=== PATIENT | female | born 1960 | race Caucasian/White ===

== ENCOUNTER 2020-12-18 13:51 | Day surgery (SDC) | payer OTHER ==
[2020-12-18] MEDS ORDERED: Sodium Chloride 0.9(Preservative Free) 10 ML IJ ONE (13:52)
[2020-12-18] MEDS ORDERED: Depo-Medrol 40 MG/ML IM ONE (13:52)
[2020-12-18] MEDS ORDERED: Xylocaine 1% Vial 30 ML PF IJ ONE (13:52)
[2020-12-18] MEDS ORDERED: DIPRIVAN 200 MG/20 ML IV ONE (15:02)
[2020-12-18] MEDS ORDERED: Lactated Ringers 1,000 ML IV ONE (15:35)
--- NOTE | 2020-12-18 17:03 | XRAY ---
59 seconds fluoroscopy time in surgery for caudal DARIANA.
--- NOTE | 2020-12-20 09:17 | XRAY ---
Indication: Caudal DARIANA. Intraoperative fluoroscopy was provided for 59 seconds. 2 digital spot images submitted for interpretation demonstrate the posterior needle tip projected over the posterior mid aspect of the sacrum near the midline. Some contrast has been injected for needle tip placement. Correlate with intraoperative findings/report.
== END 2020-12-18 15:35 | disposition home or self-care (01) ==
LOC: SDC-PAIN 13:51
PROVIDERS: ATTEND Psychiatry & Neurology Pain Medicine
DX: M54.16 Radiculopathy, lumbar region (principal); Z79.899 Other long term (current) drug therapy
CPT/HCPCS: 62323; 72020; 77003; J1030; J2001; J2704; Q9966

== ENCOUNTER 2021-01-22 12:00 | Day surgery (SDC) | payer OTHER ==
[2021-01-22] MEDS ORDERED: Depo-Medrol 40 MG/ML IM ONE (12:01)
[2021-01-22] MEDS ORDERED: LIDOCAINE HCL 2% 100 MG/5 ML IJ ONE (12:01)
[2021-01-22] MEDS ORDERED: DIPRIVAN 200 MG/20 ML IV ONE (13:37)
[2021-01-22] MEDS ORDERED: Lactated Ringers 1,000 ML IV ONE (16:19)
--- NOTE | 2021-01-23 11:29 | XRAY ---
16 seconds fluoroscopy time in surgery for bilateral L4-S1 MBB.
--- NOTE | 2021-01-25 22:54 | XRAY ---
Indication: Bilateral L4-S1 MBB. Intraoperative fluoroscopy was provided for 16 seconds. A single digital spot image submitted for interpretation demonstrate posterior needle tips projected over the expected left and right L4-S1 nerve roots. Correlate with intraoperative findings/report.
== END 2021-01-22 14:05 | disposition home or self-care (01) ==
LOC: SDC-PAIN 12:00
PROVIDERS: ATTEND Psychiatry & Neurology Pain Medicine
DX: M47.816 Spondylosis without myelopathy or radiculopathy, lumbar region (principal); Z79.899 Other long term (current) drug therapy
CPT/HCPCS: 64493; 64494; 72020; 77002; J1030; J2704

== ENCOUNTER 2021-02-19 12:36 | Day surgery (SDC) | payer OTHER ==
[2021-02-19] MEDS ORDERED: Depo-Medrol 40 MG/ML IM ONE (12:37)
[2021-02-19] MEDS ORDERED: BUPIVACAINE 0.5% VIAL IJ ONE (12:37)
[2021-02-19] MEDS ORDERED: DIPRIVAN 200 MG/20 ML IV ONE (14:24)
--- NOTE | 2021-02-19 15:22 | XRAY ---
Indication: Bilateral L4-S1 MBB. Intraoperative fluoroscopy was provided for 16 seconds. Single digital spot image submitted for interpretation demonstrates posterior needle tips projecting over the expected left and right L4-S1 nerve roots. Correlate with intraoperative findings/report.
--- NOTE | 2021-02-19 16:27 | XRAY ---
16 seconds of fluoroscopy was used in surgery for a bilateral L4-S1 MBB.
[2021-02-19] MEDS ORDERED: Lactated Ringers 1,000 ML IV ONE ×2 (16:30→16:31)
== END 2021-02-19 14:50 | disposition home or self-care (01) ==
LOC: SDC-PAIN 12:36
PROVIDERS: ATTEND Psychiatry & Neurology Pain Medicine
DX: M47.816 Spondylosis without myelopathy or radiculopathy, lumbar region (principal); Z79.899 Other long term (current) drug therapy
CPT/HCPCS: 64493; 64494; 72020; 77002; J1030; J2704

== ENCOUNTER 2021-03-14 10:13 | Day surgery (SDC) | payer OTHER ==
[2021-03-14] MEDS ORDERED: Depo-Medrol 40 MG/ML IM ONE (10:14)
[2021-03-14] MEDS ORDERED: Xylocaine 1% Vial 30 ML PF IJ ONE (10:14)
[2021-03-14] MEDS ORDERED: BUPIVACAINE 0.5% VIAL IJ ONE (10:14)
[2021-03-14] MEDS ORDERED: DIPRIVAN 200 MG/20 ML IV ONE (11:42)
[2021-03-14] MEDS ORDERED: Lactated Ringers 1,000 ML IV ONE (12:11)
--- NOTE | 2021-03-14 12:23 | XRAY ---
Indication: Right L4-S1 S1 RFA. Intraoperative fluoroscopy provided for 45 seconds. 4 digital spot image submitted for interpretation demonstrates posterior needle tips projecting over the expected right L4-S1 nerve roots. Correlate with intraoperative findings/report.
--- NOTE | 2021-03-14 12:34 | XRAY ---
45 seconds fluoroscopy time in surgery for right L4-S1 RFA.
== END 2021-03-14 11:56 | disposition home or self-care (01) ==
LOC: SDC-PAIN 10:13
PROVIDERS: ATTEND Psychiatry & Neurology Pain Medicine
DX: M47.816 Spondylosis without myelopathy or radiculopathy, lumbar region (principal); M79.7 Fibromyalgia; K57.92 Diverticulitis of intestine, part unspecified, without perforation or abscess without bleeding; J44.9 Chronic obstructive pulmonary disease, unspecified; R00.2 Palpitations; Z79.899 Other long term (current) drug therapy
CPT/HCPCS: 64635; 64636; 72100; 77002; J1030; J2001; J2704

== ENCOUNTER 2021-03-19 06:44 | Day surgery (SDC) | payer OTHER ==
[2021-03-19] MEDS ORDERED: Depo-Medrol 40 MG/ML IM ONE (06:45)
[2021-03-19] MEDS ORDERED: BUPIVACAINE 0.5% VIAL IJ ONE (06:45)
[2021-03-19] MEDS ORDERED: Xylocaine 1% Vial 30 ML PF IJ ONE (06:45)
[2021-03-19] MEDS ORDERED: DIPRIVAN 200 MG/20 ML IV ONE (08:01)
[2021-03-19] MEDS ORDERED: Lactated Ringers 1,000 ML IV ONE (09:18)
--- NOTE | 2021-03-19 09:38 | XRAY ---
Indication: Left L4-S1 RFA. Intraoperative fluoroscopy provided for 22 seconds. 4 digital spot images submitted for interpretation demonstrates posterior needle tips projecting over the expected left L4-S1 nerve roots. Correlate with intraoperative findings/report.
--- NOTE | 2021-03-19 09:49 | XRAY ---
22 seconds fluoroscopy time in surgery for left L4-S1 RFA.
== END 2021-03-19 08:40 | disposition home or self-care (01) ==
LOC: SDC-PAIN 06:44
PROVIDERS: ATTEND Psychiatry & Neurology Pain Medicine
DX: M47.816 Spondylosis without myelopathy or radiculopathy, lumbar region (principal); Z72.0 Tobacco use
CPT/HCPCS: 64635; 64636; 72100; 77002; J1030; J2001; J2704

== ENCOUNTER 2021-04-23 09:51 | Day surgery (SDC) | payer OTHER ==
[2021-04-23] MEDS ORDERED: Depo-Medrol 40 MG/ML IM ONE (09:52)
[2021-04-23] MEDS ORDERED: BUPIVACAINE 0.5% VIAL IJ ONE (09:52)
[2021-04-23] MEDS ORDERED: Lactated Ringers 1,000 ML IV ONE (12:04)
[2021-04-23] MEDS ORDERED: DIPRIVAN 200 MG/20 ML IV ONE (12:22)
--- NOTE | 2021-04-23 13:19 | XRAY ---
Indication: Bilateral SI joint injections. Intraoperative fluoroscopy provided for 23 seconds. 4 digital spot image submitted for interpretation demonstrates posterior needle tip projecting over the inferior left and right SI joint. Correlate with intraoperative findings/report. Incidental bilateral tubal ligation clips.
--- NOTE | 2021-04-23 13:31 | XRAY ---
23 seconds fluoroscopy time in surgery for bilateral SI joint injections.
== END 2021-04-23 12:50 | disposition home or self-care (01) ==
LOC: SDC-PAIN 09:51
PROVIDERS: ATTEND Psychiatry & Neurology Pain Medicine
DX: M46.1 Sacroiliitis, not elsewhere classified (principal); Z79.899 Other long term (current) drug therapy
CPT/HCPCS: 27096; 72202; 77002; G0260; J1030; J2704

== ENCOUNTER 2021-05-21 11:19 | Day surgery (SDC) | payer OTHER ==
[2021-05-21] MEDS ORDERED: Depo-Medrol 40 MG/ML IM ONE (11:20)
[2021-05-21] MEDS ORDERED: BUPIVACAINE 0.5% VIAL IJ ONE (11:20)
--- NOTE | 2021-05-21 14:37 | XRAY ---
Indication: Right shoulder and subacromial bursa injections. Intraoperative fluoroscopy provided for 23 seconds. 3 digital spot image submitted for interpretation demonstrates needle tip projecting over the right glenohumeral joint superiorly. Second needle tip is subacromial. Small amount of contrast injected for both needle tip placement. Correlate with intraoperative findings/report.
[2021-05-21] MEDS ORDERED: Lactated Ringers 1,000 ML IV ONE (14:51)
--- NOTE | 2021-05-21 16:56 | XRAY ---
23 seconds of fluoroscopy was used in surgery for a right intra-articular and subachromial bursa injection.
== END 2021-05-21 14:25 | disposition home or self-care (01) ==
LOC: SDC-PAIN 11:19
PROVIDERS: ATTEND Psychiatry & Neurology Pain Medicine
DX: M19.011 Primary osteoarthritis, right shoulder (principal); M75.51 Bursitis of right shoulder; Z79.899 Other long term (current) drug therapy
CPT/HCPCS: 20610; 73030; 77002; J1030; Q9966

== ENCOUNTER 2021-06-26 10:19 | Day surgery (SDC) | payer OTHER ==
[2021-06-26] MEDS ORDERED: BUPIVACAINE 0.5% VIAL IJ ONE (10:20)
[2021-06-26] MEDS ORDERED: Depo-Medrol 40 MG/ML IM ONE (10:20)
[2021-06-26] MEDS ORDERED: Lactated Ringers 1,000 ML IV ONE (11:16)
[2021-06-26] MEDS ORDERED: DIPRIVAN 200 MG/20 ML IV ONE (12:02)
--- NOTE | 2021-06-27 09:48 | XRAY ---
Indication: Bilateral hip and bilateral greater trochanter bursa injection. Intraoperative fluoroscopy provided for 1 minute 8 seconds. 4 digital spot image submitted for interpretation demonstrates needle tips projecting lateral to the left/right femur neck and lateral to the left/right greater trochanters. Small amount of contrast injected for all needle tip placement. Correlate with intraoperative findings/report.
--- NOTE | 2021-06-27 09:59 | XRAY ---
One minute and 8 seconds of fluoroscopy was used in surgery for a bilateral greater trochanteric bursa and an intra-articular injection.
== END 2021-06-26 12:20 | disposition home or self-care (01) ==
LOC: SDC-PAIN 10:19
PROVIDERS: ATTEND Psychiatry & Neurology Pain Medicine
DX: M16.0 Bilateral primary osteoarthritis of hip (principal); M70.62 Trochanteric bursitis, left hip; M70.61 Trochanteric bursitis, right hip
CPT/HCPCS: 20610; 73522; 76942; 77002; J1030; J2704; Q9966

== ENCOUNTER 2021-08-13 10:11 | Day surgery (SDC) | payer OTHER ==
[2021-08-13] MEDS ORDERED: BUPIVACAINE 0.5% VIAL IJ ONE (10:12)
[2021-08-13] MEDS ORDERED: Depo-Medrol 40 MG/ML IM ONE (10:12)
[2021-08-13] MEDS ORDERED: Lactated Ringers 1,000 ML IV ONE (11:49)
[2021-08-13] MEDS ORDERED: DIPRIVAN 200 MG/20 ML IV ONE (12:13)
--- NOTE | 2021-08-13 12:56 | XRAY ---
Indication: Bilateral SI joint and bilateral hip injections Intraoperative fluoroscopy provided for 51 seconds. 6 digital spot images submitted for interpretation demonstrates posterior needle tip projecting over the inferior left and right SI joint. Additional needle tip projects just lateral to left and right femur heads with small amount of contrast injected for needle tip placement. Correlate with intraoperative findings/report.
--- NOTE | 2021-08-13 13:00 | XRAY ---
51 seconds fluoroscopy time in surgery for bilateral intra-articular hip injections and injections of both SI joints.
== END 2021-08-13 12:28 | disposition home or self-care (01) ==
LOC: SDC-PAIN 10:11
PROVIDERS: ATTEND Psychiatry & Neurology Pain Medicine
DX: M46.1 Sacroiliitis, not elsewhere classified (principal); M16.0 Bilateral primary osteoarthritis of hip; Z79.899 Other long term (current) drug therapy
CPT/HCPCS: 20610; 27096; 73522; 77002; G0260; J1030; J2704; Q9966

== ENCOUNTER 2021-10-22 14:19 | Day surgery (SDC) | payer OTHER ==
[2021-10-22] MEDS ORDERED: Marcaine Mpf 0.5% Vial 30 Ml IJ ONE (14:20)
[2021-10-22] MEDS ORDERED: Depo-Medrol 40 MG/ML IM ONE (14:20)
[2021-10-22] MEDS ORDERED: DIPRIVAN 200 MG/20 ML IV ONE (15:44)
[2021-10-22] MEDS ORDERED: Lactated Ringers 1,000 ML IV ONE (15:52)
--- NOTE | 2021-10-22 16:14 | XRAY ---
Indication: Bilateral hip and bilateral greater trochanter bursa injections. Intraoperative fluoroscopy provided for 39 seconds. 4 digital spot image submitted for interpretation demonstrates needle tip projecting lateral to the left/right femur necks and lateral to the left/right greater trochanters. Small amount of contrast injected for all needle tip placement. Correlate with intraoperative findings/report.
--- NOTE | 2021-10-22 17:13 | XRAY ---
39 seconds of fluoroscopy was used in surgery for bilateral hips intra-articular and greater trochanteric bursa injections.
== END 2021-10-22 16:12 | disposition home or self-care (01) ==
LOC: SDC-PAIN 14:19
PROVIDERS: ATTEND Psychiatry & Neurology Pain Medicine
DX: M16.0 Bilateral primary osteoarthritis of hip (principal); M70.62 Trochanteric bursitis, left hip; M70.61 Trochanteric bursitis, right hip; Z79.899 Other long term (current) drug therapy
CPT/HCPCS: 20610; 73522; 77002; J1030; J2704; Q9966

== ENCOUNTER 2022-09-23 10:16 | Day surgery (SDC) | payer MEDICARE, OTHER ==
[2022-09-23] MEDS ORDERED: Depo-Medrol 40 MG/ML IM ONE (10:17)
[2022-09-23] MEDS ORDERED: BUPIVACAINE 0.5% VIAL IJ ONE (10:17)
[2022-09-23] MEDS ORDERED: DIPRIVAN 200 MG/20 ML IV ONE (11:45)
--- NOTE | 2022-09-23 13:49 | XRAY ---
Indication: Left hip injection. Intraoperative fluoroscopy provided for 24 seconds. Single digital spot image submitted for interpretation demonstrates needle tip lateral to left femur neck. Small amount of contrast injected for needle tip placement. Correlate with intraoperative findings/report.
--- NOTE | 2022-09-23 13:51 | XRAY ---
Indication: Right shoulder and subacromial bursa injection. Intraoperative fluoroscopy provided for 24 seconds. 2 digital spot image submitted for interpretation demonstrates needle tip projecting over the right glenohumeral joint superiorly. Second needle tip subacromial. Small amount of contrast injected for needle tip placement. Correlate with intraoperative findings/report.
[2022-09-23] MEDS ORDERED: Lactated Ringers 1,000 ML IV ONE (15:21)
== END 2022-09-23 12:17 | disposition home or self-care (01) ==
LOC: SDC-PAIN 10:16
PROVIDERS: ATTEND Psychiatry & Neurology Pain Medicine
DX: M19.011 Primary osteoarthritis, right shoulder (principal); M75.51 Bursitis of right shoulder; M16.12 Unilateral primary osteoarthritis, left hip; Z79.899 Other long term (current) drug therapy
CPT/HCPCS: 20610; 73030; 73501; 77002; J1030; J2704; Q9966

== ENCOUNTER 2022-11-18 10:34 | Day surgery (SDC) | payer MEDICARE, OTHER ==
[2022-11-18] MEDS ORDERED: BUPIVACAINE 0.5% VIAL IJ ONE (10:35)
[2022-11-18] MEDS ORDERED: Depo-Medrol 40 MG/ML IM ONE (10:35)
[2022-11-18] MEDS ORDERED: DIPRIVAN 200 MG/20 ML IV ONE (11:57)
--- NOTE | 2022-11-18 13:19 | XRAY ---
Indication: Bilateral SI joint injection. Intraoperative fluoroscopy provided for 31 seconds. 5 digital spot image submitted for interpretation demonstrates posterior needle tips projecting over the expected left and right SI joint. Correlate with intraoperative findings/report. Incidental bilateral tubal ligation clips.
--- NOTE | 2022-11-18 13:23 | XRAY ---
31 seconds of fluoroscopy was used in surgery for a bilateral sacroiliac joint injection.
[2022-11-18] MEDS ORDERED: Lactated Ringers 1,000 ML IV ONE (13:36)
== END 2022-11-18 12:32 | disposition home or self-care (01) ==
LOC: SDC-PAIN 10:34
PROVIDERS: ATTEND Psychiatry & Neurology Pain Medicine
DX: M46.1 Sacroiliitis, not elsewhere classified (principal); Z79.899 Other long term (current) drug therapy
CPT/HCPCS: 01992; 27096; 72202; 77002; G0260; J1030; J2704

== ENCOUNTER 2022-12-30 09:47 | Day surgery (SDC) | payer MEDICARE, OTHER ==
[2022-12-30] MEDS ORDERED: Depo-Medrol 40 MG/ML IM ONE (09:48)
[2022-12-30] MEDS ORDERED: Sodium Chloride 0.9(Preservative Free) 10 ML IJ ONE (09:48)
[2022-12-30] MEDS ORDERED: LIDOCAINE HCL 1% 50 MG/5 ML VL PF IJ ONE (09:48)
[2022-12-30] MEDS ORDERED: DIPRIVAN 200 MG/20 ML IV ONE (11:39)
[2022-12-30] MEDS ORDERED: Lactated Ringers 1,000 ML IV ONE (12:32)
--- NOTE | 2022-12-30 13:11 | XRAY ---
Indication: Left L3-L5 transforaminal DARIANA. Intraoperative fluoroscopy provided for 27 seconds. 4 digital spot image submitted for interpretation demonstrates posterior needle tips projecting over the expected left L3 and L4 nerve roots. Small amount of contrast injected for needle tip placement. Correlate with intraoperative findings/report.
--- NOTE | 2022-12-30 13:13 | XRAY ---
Indication: Left greater trochanter bursa injection. Intraoperative fluoroscopy provided for 7 seconds. Single digital spot image obtained prone submitted for interpretation demonstrates needle tip lateral to the left greater trochanter. Small amount of contrast injected for needle tip placement. Correlate with intraoperative findings/report.
--- NOTE | 2022-12-30 13:15 | XRAY ---
7 seconds of fluoroscopy was used in surgery for a left greater trochanteric bursa injection.
--- NOTE | 2022-12-30 13:15 | XRAY ---
27 seconds of fluoroscopy was used in surgery for a left L3-L5 transforaminal DARIANA.
== END 2022-12-30 12:10 | disposition home or self-care (01) ==
LOC: SDC-PAIN 09:47
PROVIDERS: ATTEND Psychiatry & Neurology Pain Medicine
DX: M54.16 Radiculopathy, lumbar region (principal); M16.12 Unilateral primary osteoarthritis, left hip; Z79.899 Other long term (current) drug therapy
CPT/HCPCS: 20610; 64483; 64484; 72100; 73501; 77002; 77003; J1030; J2001; J2704; Q9966